=== PATIENT | male | born 1990 | race Caucasian/White ===

== ENCOUNTER 2017-09-05 02:10 | Emergency (ER) | payer MEDICAID ==
[~2017-09-05] VITALS: Ht 175.3 cm; Wt 68.0 kg
[2017-09-05 04:07] VITALS: BP 115/67
--- NOTE | 2017-09-05 04:08 | NUR ---
PT AMBULATORY TO ER BED 9. PT BIB SELF C/O R KNEE PAIN X 3 DAYS. DENIES TRAUMA. 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 VSS/RESP EVEN UNLABORED/NAD NOTED/SKIN WARM AND DRY/DENIES N-V-D/AFEBRILE/AOX4. AWAITING MD NICHOLS.
--- NOTE | 2017-09-05 04:20 | NUR ---
Megan conner in ED - 09/05/17 at 0438 by RACHAEL MD AT BEDSIDE, PT REFUSING TO ANSWER QUESTIONS AND REFUSING TREATMENT. SECURITY AT BEDSIDE, PT YELLING AT MD. PT ASKED TO LEAVE.
--- NOTE | 2017-09-05 04:20 | NUR ---
MD AT BEDSIDE, PT REFUSING TO ANSWER QUESTIONS AND REFUSING TREATMENT. SECURITY AT BEDSIDE, PT YELLING AT MD. PT ELOPED FROM ER.
== END 2017-09-05 04:40 | disposition left against medical advice (07) ==
LOC: ER 02:17
DX: Z53.21 Procedure and treatment not carried out due to patient leaving prior to being seen by health care provider (principal)
CPT/HCPCS: A4606; Z7610